=== PATIENT | male | born 1965 | race African-American/Black ===

== ENCOUNTER 2020-06-27 12:53 | Emergency (ER) | payer OTHER ==
[2020-06-28 12:46] LABS: SARS-CoV-2 MS2 Positive; SARS-CoV-2 N Gene Positive; SARS-CoV-2 S Gene Positive; SARS-CoV-2 by NAA DETECTED (NotDetected); SARS-CoV-2 orf1ab Positive
== END 2020-06-27 13:11 | disposition home or self-care (01) ==
LOC: ERS 12:53
DX: U07.1 COVID-19 (principal); F17.210 Nicotine dependence, cigarettes, uncomplicated
CPT/HCPCS: 87635; 99283; U0003